=== PATIENT | female | born 1940 | race Caucasian/White ===

== ENCOUNTER 2018-06-18 18:00 | Emergency (ER) | payer OTHER ==
[~2018-06-18] VITALS: Ht 157.5 cm; Wt 84.5 kg
--- NOTE | 2018-06-18 18:17 | NUR ---
PT BIB EMS AND DAUGHTER AFTER SYNCOPE X2 W/ BM. PER EMS/DAUGHTER, FIRST SYNCOPAL EVENT WAS WHILE ON TOILET; WHEN TRANSPORTED TO BED BY FIRE ADDITIONAL SYNCOPAL EPISODE OCCURED WHILE INCONTINENT W/ LOOSE BM. [employer] IN[employer] 85 PER EMS. PT ARRIVES AWAKE/ALERT, A&OX0, BASELINE PER DAUGHTER. FLACC 0. DAUGHTER DENEIS RECENT COMPLAINTS OF PAIN/NAUSEA/VOMITING/FEVER. ERP AT BEDSIDE FOR INTIAL ASSESSMENT. NO IV PLACED PER ERP. BP/SPO2/ECG MONITORING IN PLACE. SINUS JOAN ON MONITOR, HR 56.
--- NOTE | 2018-06-18 18:46 | NUR ---
YING JORDAN COMPLETED, COLLECTED AND WALKED TO LAB. BEDSIDE REPORT TO
--- NOTE | 2018-06-18 18:58 | NUR ---
REPORT RECEIVED FROM ALEX LAL.
[2018-06-18 19:03] LABS: BASOPHILS % (AUTO) 0 % (0-1); EOSINOPHILS # (AUTO) 0.06 x10^3/uL (0-0.4); EOSINOPHILS % (AUTO) 1 % (1-7); LYMPHOCYTES # (AUTO) 1.93 x10^3/uL (1-3.4); LYMPHOCYTES % (AUTO) 15 % (22-44); MD NO; MEAN CORPUSCULAR HEMOGLOBIN 29.2 pg (27.0-34.8); MEAN CORPUSCULAR HGB CONC 33.2 g/dL (32.4-35.8); MONOCYTES # (AUTO) 0.31 x10^3/uL (0.2-0.8); MONOCYTES % (AUTO) 2 % (2-9); NEUTROPHILS # (AUTO) 10.76 x10^3/uL (1.8-6.8); NEUTROPHILS % (AUTO) 82 % (42-75); PLATELET COUNT 243 x10^3/uL (130-400); RED BLOOD COUNT 5.71 x10^6/uL (3.82-5.3); RED CELL DISTRIBUTION WIDTH 14.3 % (9.6-15.2)
[2018-06-18 19:04] LABS: CULTURE INDICATED? YES; MICROSCOPIC INDICATED
[2018-06-18] MEDS ORDERED: SIMV20TA3 PO (19:07)
[2018-06-18] MEDS ORDERED: ATEN25TA PO (19:08)
[2018-06-18] MEDS ORDERED: LISI-170 PO (19:08)
[2018-06-18] MEDS ORDERED: MEMA28CA PO (19:08)
[2018-06-18] MEDS ORDERED: MELA1TAB19 SL (19:09)
[2018-06-18 19:11] LABS: ALBUMIN 3.7 g/dL (3.4-5.0); ANION GAP 9 mmol/L (5-15); CALCIUM 9.3 mg/dL (8.5-10.1); CHLORIDE 109 mmol/L (98-107); CREATININE 0.98 mg/dL (0.55-1.02)
[2018-06-18] MEDS ORDERED: CEFDINIR 300 MG CAPSULE PO ONE (19:30)
[2018-06-18] MEDS ORDERED: CEFDINIR 300 MG CAPSULE ONE (19:36)
--- NOTE | 2018-06-18 19:45 | NUR ---
pt medicated per emar. pt tolerated well. pt's aox4. resps even and unlabored.
[2018-06-18 19:59] VITALS: BP 143/57
--- NOTE | 2018-06-18 20:00 | NUR ---
Roselia bolaños in ED - 06/18/18 at 2001 by PHILLIP PT'Sebastian HAIR GIVEN TO DC INSTRUCTIONS AND SCRIPT. PT'S P
--- NOTE | 2018-06-18 20:01 | NUR ---
PT'S DOUGHTERS GIVEN TO DC INSTRUCTIONS AND SCRIPT. PT'S DAUGHTERS EDUCATED REGARDING DC MEDICATIONS. PT WHEELED TO DC WITH HER DAUGHTERS. NO ACUTE DISTRESS AT DC.
== END 2018-06-18 20:01 | disposition home or self-care (01) ==
LOC: ED 19:19
DX: N39.0 Urinary tract infection, site not specified (principal); I10 Essential (primary) hypertension
CPT/HCPCS: 36415; 74018; 80048; 81001; 82040; 85025; 87077; 87086; 87186; 93005; 99284

== ENCOUNTER 2019-02-24 20:13 | Emergency (ER) | payer MEDICARE, OTHER ==
[~2019-02-24] VITALS: Ht 175.3 cm; Wt 81.8 kg
[~2019-02-24 20:13] MED LIST: ATEN25TA PO; LISI-170 PO; MELA1TAB19 SL; MEMA28CA PO; SIMV20TA3 PO
--- NOTE | 2019-02-24 20:19 | NUR ---
BIB [facility] FROM HOME AFTER PT FAMILY SAYS SHE WAS BEHAVING ABNORMALLY W/ FLAT AFFECT, CLAMMY, WET ROBE. PER FAMILY PT HAVING WET LOOSE COUGH X 1 WK. FAMILY CHECKED HER BP >200 SBP W/ HR 30'S. PER FIRE SBP 60'S W/ HR 40'S. PER EMS BP 86/56 W/ HR 64 GIVEN 275 ML NS BP NOW 132/40. PER EMS ON PALPATION LUQ AND LLQ ABD PAIN. BS 133. PER FAMILY SIMILAR SX BEFORE W/ NO BM. PER FAMILY RECENT BM LOW VOLUME. MONITORS APPLIED. EKG COMPLETED.
[2019-02-24] MEDS ORDERED: SODIUM CHLORIDE FLUSH 10ML SYR IVF ONE (20:30)
[2019-02-24 20:45] LABS: BASOPHILS # (AUTO) 0.05 x10^3/uL (0-0.1); BASOPHILS % (AUTO) 0 % (0-1); EOSINOPHILS # (AUTO) 0.06 x10^3/uL (0-0.4); EOSINOPHILS % (AUTO) 1 % (1-7); LYMPHOCYTES # (AUTO) 1.65 x10^3/uL (1-3.4); LYMPHOCYTES % (AUTO) 12 % (22-44); MD NO; MEAN CORPUSCULAR HEMOGLOBIN 29.7 pg (27.0-34.8); MEAN CORPUSCULAR HGB CONC 32.4 g/dL (32.4-35.8); MEAN CORPUSCULAR VOLUME 91.4 fL (80-100); MEAN PLATELET VOLUME 8.5 fL (7.4-10.4); MONOCYTES # (AUTO) 0.96 x10^3/uL (0.2-0.8); MONOCYTES % (AUTO) 7 % (2-9); NEUTROPHILS # (AUTO) 10.74 x10^3/uL (1.8-6.8); NEUTROPHILS % (AUTO) 80 % (42-75); PLATELET COUNT 227 x10^3/uL (130-400); RED BLOOD COUNT 5.47 x10^6/uL (3.82-5.3); RED CELL DISTRIBUTION WIDTH 13.6 % (9.6-15.2)
[2019-02-24] MEDS ORDERED: LISI2.5T PO (20:45)
[2019-02-24 20:48] VITALS: BP 102/36
[2019-02-24 20:55] LABS: ALANINE AMINOTRANSFERASE 22 U/L (12-78); ALBUMIN 3.4 g/dL (3.4-5.0); ANION GAP 7 mmol/L (5-15); CALCIUM 9.4 mg/dL (8.5-10.1); CHLORIDE 111 mmol/L (98-107); CREATININE 1.23 mg/dL (0.55-1.02)
[2019-02-24 20:58] LABS: ALKALINE PHOSPHATASE 70 U/L (45-117); BILIRUBIN,TOTAL 0.9 mg/dL (0.2-1.0); TOTAL PROTEIN 7.6 g/dL (6.4-8.2)
--- NOTE | 2019-02-24 21:12 | NUR ---
PT HAD BM LOOSE FOUL SMELLING. APPEARS TO BE C-DIFF. DANYA CARE PERFORMED.
[2019-02-24 21:19] LABS: TROPONIN I < 0.015 ng/mL (0.000-0.045)
--- NOTE | 2019-02-24 21:23 | NUR ---
REPORT GIVEN TO HALI MCCRARY.
--- NOTE | 2019-02-24 22:35 | NUR ---
PT IN BED, FAMILY AT BEDSIDE. PT INCONTINENT OF URINE AND STOOL. LINENS CHANGED, DANYA CARE PROVIDED. STRAIGHT CATH U/A COLLECTED, PT TOLERATED WELL. FAMILY DENIES ANY FURTHER NEEDS OR CONCERNS, CALL LIGHT IN REACH.
[2019-02-24] MEDS ORDERED: OMNIPAQUE 350 MG/ML, 100ML BOTTLE ONE (23:05)
[2019-02-24 23:17] LABS: CULTURE INDICATED? NO; MICROSCOPIC AUTO
[2019-02-24 23:48] LABS: CLOSTRIDIUM DIFFICILE ANTIGEN NEGATIVE; CLOSTRIDIUM DIFFICILE TOXIN NEGATIVE (Negative)
== END 2019-02-25 00:41 | disposition home or self-care (01) ==
LOC: ED 21:53
DX: R55 Syncope and collapse (principal); I10 Essential (primary) hypertension
CPT/HCPCS: 36415; 71045; 74177; 80053; 81001; 83690; 84484; 85025; 87324; 89055; 93005; 99284; Q9967